=== PATIENT | female | born 1955 | race Caucasian/White ===

== ENCOUNTER → 2019-10-10 | Outpatient (CLI) | payer OTHER ==
[2019-10-10 14:32] VITALS: BP 138/88; PULSE 88; RESP 18; TEMP 98.3; BMI 36.1
--- NOTE | 2019-10-10 14:43 | P.HPBAR ---
Bariatric H&P - History & Physicial H&P Date: 10/10/19 History & Physicial: Visit/CC: lap band f/u Patient initial contact: Initial weight: Initial weight in pounds: Height: 5 ft 4.5 in Initial BMI: Last weight: Current weight: 97.069 kg Current weight in pounds: 214.00 Current BMI: 36.1 Marquez body weight (based on NIH guidelines): 55.565 kg Excess body weight loss: The patient is a 64 year-old F who presents for Bariatric Assessment. Patient presents today for her LAP-BAND adjustment. She has not been seen in many years. She is requesting a fill of her LAP-BAND. Past Medical History Past Medical History: No Reported History History of Any Multi-Drug Resistant Organisms: None Reported Past Surgical History: Bariatric Surgery, Uterine Ablation Additional Past Surgical History / Comment(s): LAP BAND 2005 & REPLACED 2011, Past Anesthesia/Blood Transfusion Reactions: No Reported Reaction, Family History of Problems w/ Anesthesia Additional Past Anesthesia/Blood Transfusion Reaction / Comm: DAUGHTER SHAKES UNCONTROLLABLY AFTER ANESTHESIA Past Psychological History: No Psychological Hx Reported Smoking Status: Unknown if ever smoked Past Alcohol Use History: Occasional Past Drug Use History: None Reported - Past Family History Mother Additional Family Medical History / Comment(s): SEVERE DIVERTIULITIS Father Family Medical History: Cancer, COPD, Coronary Artery Disease (CAD) Additional Family Medical History / Comment(s): PROSTATE CA Surgical - Exam Vital Signs Temp Pulse Resp BP 98.3 F 88 18 138/88 10/10/19 14:26 10/10/19 14:26 10/10/19 14:26 10/10/19 14:26 - General well developed, well nourished, no distress - Eyes PERRL - Abdomen Abdomen: soft, non tender Bariatric Assessment & Plan Plan: Patient LAP-BAND was just. She had 0.5 mL added to her band. She was able require without difficulty. She'll follow-up in 4 weeks. Bariatric Checklist Checklist: Plan: Checklist: EGD: 1. Hiatal hernia: 2. H. Pylori: HgbA1c: Vitamin D: Smoking: Never smoker Primary care physician referral: Psychiatry clearance: Cardiology clearance: Sleep study: Diet journal: VTE risk score: VTE risk level: Rehab needs at discharge:
== END | disposition home or self-care (01) ==
LOC: BARWHC3 14:13
PROVIDERS: ATTEND Surgery
DX: Z46.51 Encounter for fitting and adjustment of gastric lap band (principal); Z98.84 Bariatric surgery status; Z98.890 Other specified postprocedural states
CPT/HCPCS: 99212